=== PATIENT | male | born 1985 | race Caucasian/White ===

== ENCOUNTER 2017-01-28 09:00 | Day surgery (SDC) | payer BC ==
[2017-01-27 10:35] VITALS: BMI 19.3
[~2017-01-28 09:00] MED LIST: DEXAMETHASONE SOD PHOSPHATE 10 MG/ML 1 ML VIAL IV ONE; DEXAMETHASONE SOD PHOSPHATE 4 MG/ML 1 ML VIAL IV ONE; FAMOTIDINE 20 MG/2 ML VIAL IV ONE; LACTATED RINGERS 1,000 ML IV SCH; LIDOCAINE 1% 20 ML VIAL (10MG/ML) FOR IV START INTRADERMA PRN; MIDAZOLAM 2 MG/2 ML VIAL IV PRN; ONDANSETRON 4 MG/2 ML VIAL IVP ONE; Pre Op ABX Message 1 EACH MISC MISCELLANE ONE; SCOPOLAMINE 1.5MG/72HR PATCH TRANSDERM ONE
[2017-01-28] MEDS: OXYMETAZOLINE 0.05% NASL SPRAY 15 ML NASAL STA ×5 (10:00→10:30)
[2017-01-28] MEDS ORDERED: fentaNYL (PF) 50 MCG/ML 2 ML AMP ONE (10:45)
[2017-01-28] MEDS ORDERED: PROPOFOL 10 MG/ML 20 ML VIAL IV ONE (10:45)
[2017-01-28] MEDS ORDERED: LIDOCAINE 1% INJ 10MG/ML (20 ML MDV) ONE (10:45)
[2017-01-28] MEDS ORDERED: MIDAZOLAM 2 MG/2 ML VIAL ONE (10:45)
[2017-01-28] MEDS ORDERED: SUCCINYLCHOLINE CHLORIDE 100 MG/5 ML SYR IV ONE (10:45)
[2017-01-28] MEDS ORDERED: DEXAMETHASONE SOD PHOS (MDV) 100 MG/10 ML VIAL ONE (10:45)
[2017-01-28] MEDS ORDERED: LACTATED RINGERS 1,000 ML IV ONE (11:36)
[2017-01-28 12:31] VITALS: TEMP 96.8
--- NOTE | 2017-01-28 12:52 | P.OP ---
Date of Procedure: 01/28/17 Preoperative Diagnosis: Deviated nasal septum Hypertrophy of bilateral inferior nasal turbinates with obstruction Chronic sinusitis Atypical facial pain Postoperative Diagnosis: same Procedure(s) Performed: Septoplasty Bilateral outfracture and compression and submucosal resection of the inferior turbinates Bilateral functional endoscopic sinus surgery Anesthesia: CARMEN Surgeon: Suly Kingston ( [place]) Estimated Blood Loss (ml): 25 Pathology: other (Sinonasal) Condition: stable Disposition: PACU Indications for Procedure: This patient has had a long-standing issue with total nasal obstruction, total anosmia. 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 He's lost his sense of smell many years ago. He has constant facial pain and pressure primarily the maxillary distribution. He is constantly yellow black discolored drainage. He had a severe deviated nasal septum from a fracture and large obstructive inferior turbinates and evidence of chronic sinusitis on endoscopy. He appears to resolve after antibiotic therapy but recurs shortly thereafter. Due to the fact that it isn't a lifetime problem is tried multiple medical therapies he's wished to proceed forward with sinus surgery. All risks, benefits, and alternative therapies were discussed in detail. Consent was obtained and all questions were answered. The septum was severely deviated and he understands he will be getting a septal splint of the end of the case. Operative Findings: Severe deviated nasal septum with 100% occlusion on the right and then 100% occlusion on the left in a S-shaped deviation. Patient was found have suly pus from the ostium middle complexes bilaterally with diseased tissue of the maxillary ethmoid frontal and sphenoid sinuses bilaterally. Large inferior turbinates were also noted that were obstructive. Description of Procedure: This patient was taken to the operative room and placed in the supine position. A general inhalation anesthetic was administered to the patient by the department of anesthesia with a functioning IV line in place. The patient was monitored throughout the entire case by the department of anesthesia. The eyes were taped shut for protection. The patient was placed in a slight reverse Trendelenburg position. The patient had previously utilize Afrin nasal spray preoperatively. The nose was evaluated and the septum lateral nasal wall and inferior turbinates were injected with lidocaine 1% with epinephrine 1 100,000 bilaterally. Approximately 10 minutes were allowed wait for full vasoconstrictive effects to take place. At this point a caudal incision was made over the caudal portion of the left septum down to the mucoperichondrium. A mucoperichondrial flap was elevated on the left side and dissection was carried with use of tunnels posteriorly. We then made a crossover incision through the cartilage to the contralateral side and for the mucoperichondrial flap development was performed to the extent of visualization on the contralateral side. After the cartilage was freed with use of several crosshatching incisions and removal of some redundant strips of septal cartilage, the septum was straightened and placed back in the midline. A PDS supple sheet was placed. The septum was sutured fixated to the ovarian groove. Excellent straightening occurred and the septum was visibly straight. Incision was closed with a 40 rapid Vicryl. We utilized a running nonlocking fashion for closure of the incision. A quilting stitch was used to reapproximate the septal flaps with use of a 40 rapid Vicryl. We then entered the nose with a 0 and 30 Lazcano alla endoscope. Previous to this we did inject the lateral nasal wall and middle turbinate and uncinate process with lidocaine 1% with epinephrine 1 100,000. Approximately 10 minutes were allowed wait for full vasoconstrictive effects to take place. With use of a microdebrider and a pediatric backbiter, we took down the uncinate process bilaterally. We then opened the maxillary sinuses bilaterally. We utilized a microdebrider for this and entered the maxillary sinuses and removed diseased tissue. This was done bilaterally. After the maxillary sinuses were opened and the diseased tissue was removed we entered the ethmoid bulla and with use of a microdebrider and up-biting shyanne and Shraddha, we followed the fovea frontalis through the basal lamella and into the posterior ethmoid air cells and did a total ethmoidectomy. We removed the anterior ethmoid air cells with use of a microdebrider and up-biting boss. After all the anterior ethmoid air cells were removed we did the same in the posterior ethmoid. A total ethmoidectomy was completed in that fashion with removal of all the anterior and posterior ethmoid air cells and diseased tissue. Once the ethmoids cells were all taken down we then entered the sphenoid sinus medially and inferiorly underneath the inferior attachment of the superior turbinate. The sphenoid sinus was opened entered and diseased tissue was removed bilaterally. This was done with a microdebrider and Blakesley. We then entered the frontal sinuses with a giraffe and up-biting Yuvalley entered on the agar nasi cells. We open the frontal sinuses and removed sinus tissue that was diseased. We explored the frontal sinuses bilaterally. To summarize all sinuses were open all sinuses were explored and we remove diseased tissue from the sphenoid maxillary and frontal sinuses. Contour i.e. propel was placed in both maxillary sinuses. Ethmoid sinuses were opened totally. 0 gel was inserted and minimal bleeding was encountered. We reinspected the skull base there is no signs of any orbital penetration or signs of any intracranial penetration. The sugical site was reinspected after the nasal pore was placed and no bleeding was seen. Intranasal splints were inserted and fixated at the end of the case. We utilized Whitaker nasal splints. There will be removed and the patient returns to the office. Attention was then paid to the inferior turbinates. The bilateral inferior turbinates were hypertrophic and obstructive. We entered the anterior portion of the inferior turbinates with use of a microdebrider. We remove bone and submucosal elements with use of a microdebrider bilaterally. The inferior turbinates underwent a submucosal resection with removal of submucosal tissue and bone. We obtained a much better and normal in size for breathing. The inferior turbinates were then outfractured and compressed with a [place] nasal elevator. Excellent airway was obtained and was symmetric bilaterally. No bleeding was encountered.
[2017-01-28] MEDS: HYDROmorphone 1 MG/ML 1 ML SYRINGE IVP PRN ×2 (13:00→13:12)
[2017-01-28 13:52] VITALS: RESP 16
[2017-01-28] MEDS ORDERED: HYDROcodone/APAP 5-325MG 1 EACH TAB PO ONE (14:34)
[2017-01-28 15:08] VITALS: BP 136/88; PULSE 65
== END 2017-01-28 15:58 | disposition home or self-care (01) ==
LOC: OR 09:00
PROVIDERS: ATTEND Otolaryngology
DX: J34.2 Deviated nasal septum (principal); J34.3 Hypertrophy of nasal turbinates; J32.9 Chronic sinusitis, unspecified; F17.200 Nicotine dependence, unspecified, uncomplicated; Z91.09 Other allergy status, other than to drugs and biological substances
CPT/HCPCS: 88305; 88300; 30520; 30140; 31267; 31255; 31288; 31276; C1713; J2250; J1100 ×2; J2405; J2001; J3010; J1170; J0330; J2704

== ENCOUNTER → 2021-04-15 | Outpatient (CLI) | payer BC ==
--- NOTE | 2021-04-15 09:45 | US ---
EXAMINATION TYPE: US st tissue head/neck DATE OF EXAM: 04/15/2021 COMPARISON: Not available at this location. CLINICAL HISTORY: R59.0 CERVICAL LYMPHADENOPATHY. Patient stated has bilateral superior neck enlarged lymph nodes with prior CT neck at [facility]. Largest right neck lymph node seen superiorly and anterior neck = 2.0 x 1.1 x 0.5cm and largest left superior neck lymph node = 2.4 x 1.0 x 0.6cm. Lymphadenopathy can be associated with lymphoma. Thyroid portions visualized are unremarkable. IMPRESSION: 1. Prominent bilateral neck adenopathy.
== END | disposition home or self-care (01) ==
LOC: RADUSWWP 08:14
PROVIDERS: ATTEND Otolaryngology
DX: R59.0 Localized enlarged lymph nodes (principal)
CPT/HCPCS: 76536

== ENCOUNTER 2021-05-09 09:14 | Day surgery (SDC) | payer BC ==
--- NOTE | 2021-05-09 11:00 | US ---
ULTRASOUND GUIDED FNA THYROID BIOPSY: CLINICAL HISTORY: Request for largest right and left submandibular lymph node biopsy FINDINGS: The procedure was explained to the patient. The risks, complications, benefits and alternatives were discussed and any questions were answered. Informed consent was obtained. Patient was placed supin e on the ultrasound table and prepped and draped in the usual sterile fashion. Utilizing a 18-gauge core biopsy needle, samples were answered from the requested right and left neck lymph node. Patient was stable throughout the procedure. Pathology is pending. All elements of maximal barrier and sterile technique were utilized. IMPRESSION: 1. Successful ultrasound guided bilateral neck core biopsy.
[2021-05-09 13:37] VITALS: TEMP 98.1
[2021-05-09 13:43] VITALS: BP 124/70; PULSE 73; RESP 18
== END 2021-05-09 11:00 | disposition home or self-care (01) ==
LOC: RADPROMAIN 09:14
PROVIDERS: ATTEND Otolaryngology
DX: R59.0 Localized enlarged lymph nodes (principal)
CPT/HCPCS: 38505; 76942; 88305; 88341; 88342

== ENCOUNTER → 2024-08-05 | Outpatient (CLI) | payer BC ==
[2024-08-05 13:49] LABS: ALT 59 U/L (10-49); AST 24 U/L (14-35); Chol/HDL Ratio 4.34 Ratio; LDL Cholesterol,Calculated 170.3 mg/dL (0.0-131.0); VLDL Calculation 18.26 mg/dL (5.00-40.00)
== END | disposition home or self-care (01) ==
LOC: LABWHC1 09:14
PROVIDERS: ATTEND Internal Medicine Cardiovascular Disease
DX: E78.2 Mixed hyperlipidemia (principal)
CPT/HCPCS: 36415; 80061; 84443; 84450; 84460

== ENCOUNTER → 2025-03-01 | Outpatient (CLI) | payer BC ==
[2025-03-01 15:40] LABS: ALT 33 U/L (10-49); AST 23 U/L (14-35); Chol/HDL Ratio 3.04 Ratio; LDL Cholesterol,Calculated 139.7 mg/dL (0.0-131.0); VLDL Calculation 12.62 mg/dL (5.00-40.00)
== END | disposition home or self-care (01) ==
LOC: LABWHC1 08:18
PROVIDERS: ATTEND Internal Medicine Cardiovascular Disease
DX: E78.2 Mixed hyperlipidemia (principal)
CPT/HCPCS: 36415; 80061; 84450; 84460